=== PATIENT | female | born 2000 | race Caucasian/White ===

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

== ENCOUNTER 2018-05-23 06:17 | Emergency (ER) | payer SELFPAY ==
[~2018-05-23] VITALS: Ht 152.4 cm; Wt 89.5 kg
[~2018-05-23 06:17] MED LIST: AMITRIPTYLINE H50 MG PO; ANAPROX DS550 MG PO; BIOTIN5 MG PO; FEXOFENADINE HC60 MG PO; FLUTICASONE PRO16 GM NASAL; KEFLEX500 MG PO; LANTUS INSULIN10 ML SC; LISINOPRIL5 MG PO; NOVOLOG100 U/M1 SC; PROTONIX I40 MG/VIAL PO; PROZAC40 MG PO; TOPAMAX25 MG PO
[2018-05-23 06:26] VITALS: Ht 152.4 cm; Wt 89.5 kg
[2018-05-23 06:32] LABS: BASOPHILS 0.2 % (0-2); EOSINOPHILS 1.6 % (0-7); HEMATOCRIT 39.6 % (36.0-48.0); HEMOGLOBIN 13.6 g/dL (12-16); IMMATURE GRANULOCYTES 0.2 % (0-5); LYMPHOCYTES 34.1 % (15-50); MCH 29.9 pg (26.0-34.0); MCHC 34.3 g/dL (31.0-37.0); MEAN PLATELET VOLUME 11.5 fL (7.4-10.4); MONOCYTES 8.8 % (2-11); NEUTROPHILS 55.1 % (40-80); PLATELET COUNT 295 10x3/uL (130-400); RBC 4.55 10x6/uL (4.00-5.40); WBC 6.2 10x3/uL (4.8-10.8)
[2018-05-23 06:42] LABS: HCG SERUM NEGATIVE (NEGATIVE); KETONE - SERUM NEGATIVE (NEGATIVE)
[2018-05-23 06:53] LABS: APPEARANCE CLEAR (CLEAR); BACTERIA FEW /hpf (NONE SEEN); BILIRUBIN NEGATIVE (NEGATIVE); COLOR STRAW (YELLOW); EPITHELIAL CELLS 0-5 /hpf (0-5); GLUCOSE 1000 mg/dL (NEGATIVE); KETONE LARGE mg/dL (NEGATIVE); MUCUS <1+ /lpf (NONE SEEN); NITRITE NEGATIVE (NEGATIVE); PROTEIN NEGATIVE (NEGATIVE); RED CELLS - URINE 0-5 /hpf (0-5); SPECIFIC GRAVITY 1.015 (1.005-1.020); UROBILINOGEN NORMAL (NORMAL); WHITE CELLS - URINE RARE /hpf (0-5); YEAST <1+ /hpf (NONE SEEN)
[2018-05-23 07:01] LABS: ALBUMIN 3.7 g/dL (3.4-5.0); ALKALINE PHOSPHATASE 140 U/L (46-116); ALT (SGPT) 19 U/L (10-68); BILIRUBIN - TOTAL 0.67 mg/dL (0.2-1.3); CALCIUM 8.8 mg/dL (8.5-10.1); CARBON DIOXIDE 18.4 mmol/L (21.0-32.0); CHLORIDE - SERUM 97 mmol/L (98-107); CREATININE - SERUM 0.8 mg/dL (0.6-1.3); POTASSIUM - SERUM 3.7 mmol/L (3.5-5.1); PROTEIN - SERUM 7.6 g/dL (6.4-8.2); SODIUM 135 mmol/L (136-145); UREA NITROGEN 17 mg/dL (7-18); eGFR NON AFRICAN AMERICAN > 90 mL/min (90-120)
[2018-05-23 07:02] LABS: CALC OSMOLALITY 296 mosm/kg (275-300)
[2018-05-23 07:14] LABS: GLUCOSE 554 mg/dL (74-106)
[2018-05-23 09:04] VITALS: BP 102/47
== END 2018-05-23 09:09 | disposition home or self-care (01) ==
LOC: D.ER 06:17
PROVIDERS: Family Medicine
DX: E10.65 Type 1 diabetes mellitus with hyperglycemia (principal); Z79.4 Long term (current) use of insulin; I10 Essential (primary) hypertension